=== PATIENT | female | born 1950 | race Caucasian/White ===

== ENCOUNTER 2020-03-20 19:32 | Emergency (ER) | payer MEDICARE, OTHER, SELFPAY ==
[2020-03-20 19:43] VITALS: BP 177/94; PULSE 77; RESP 18; TEMP 36.6; O2SAT 99
--- NOTE | 2020-03-20 19:47 | ED_ITS ---
HPI - Wound/Laceration General Chief Complaint: Wound/Laceration Stated Complaint: lt ram injury, left arm cut Time Seen by Provider: 03/20/20 19:47 History of Present Illness HPI narrative: Otherwise healthy 69-year-old woman stumbled over her cat today and fell against a metal chair. She has a small laceration to the and left ram and the left wrist. She was concerned that she needed a tetanus update so came into the emergency room for further evaluation. She has cleaned the wounds nicely at home and there was minimal bleeding at this time. She describes no recent fevers, cough, chills, chest pain, dyspnea no syncopal episodes and the fall that she experienced today was purely mechanical and secondary to her cat Related Data Allergies Allergy/AdvReac Type Severity Reaction Status Date / Time permethrin [PERMETHRIN] Allergy Severe Unverified 02/16/18 12:51 Review of Systems Review of Systems Narrative: Remainder of review of systems including constitutional, cardiovascular, respiratory, GI, , musculoskeletal, neurologic and psychiatric systems reviewed and are unremarkable except as noted in HPI. Patient History Social History Smoking Status: Current every day smoker Exam Initial Vital Signs Initial Vital Signs: Vital Signs Temperature 97.9 F 03/20/20 19:43 Pulse Rate 77 03/20/20 19:43 Respiratory Rate 18 03/20/20 19:43 Blood Pressure 177/94 H 03/20/20 19:43 Pulse Oximetry 99 03/20/20 19:43 Procedures Laceration Repair Laceration 1: Site: upper extremity Side (If applicable): right Size (cm): 3 Description: linear Depth: simple, single layer Skin layer closed with: dermabond Laceration 2: Site: lower extremity Description: linear Depth: simple, single layer Pre-repair: wound explored Skin layer closed with: dermabond (And Steri-Strips for added support) Course Orders Ordered: Discontinued Medications Bacitracin (Bacitracin) 1 applic TOP NOW ONE Stop: 03/20/20 19:58 Diphtheria/Tetanus/Acell Pertussis (Adacel) 0.5 ml IM .ONCE ONE Stop: 03/20/20 19:48 Last Admin: 03/20/20 19:54 Dose: 0.5 ml Documented by: Vital Signs Vital signs: Vital Signs - 8 hr 03/20/20 19:43 Temperature 97.9 F Pulse Rate 77 Respiratory Rate 18 Blood Pressure 177/94 H Pulse Oximetry 99 MDM - Wound/Laceration MDM Narrative Medical decision making narrative: Minor scratches to the right wrist and left ram. Both repaired with Dermabond and Steri-Strips. Tetanus status is updated. Fall was mechanical related to her cat no additional medical workup is warranted at this time. Safe for home discharge Discharge Plan Departure Patient Disposition: Home Clinical Impression: Abrasion Instructions: Tetanus, Diphtheria, Pertussis (Tdap) Vaccine, DI for Minor La ceration Activity Restrictions/Additional Instructions: Thank you for coming in today The wound on your wrist we used a bit of skin glue and then Steri-Strips. Please keep some Neosporin or other antibiotic ointment on the wound until it is clearly healing. For the wound on your ram we used similar technique to pull the edges together. This area has much higher potential to become infected so please pay attention. If your noticing any drainage, increased redness or increasing pain in that area you do need to be seen and re-evaluated. Both areas should heal nicely and completely. I am sorry you ended up tripping over your cat this evening but you have to thank her for giving us a chance to meet.
[2020-03-20] MEDS: TET,DIPH,PERTUSS(ACELL),VAC/PF 0.5 ML SYRINGE IM (19:54)
[2020-03-20] MEDS: BACITRACIN OINT 0.9 GM PCKT 1 APPLIC TOP (20:09)
== END 2020-03-20 20:08 | disposition home or self-care (01) ==
PROVIDERS: Emergency Provider Emergency Medicine
DX: S60.811A Abrasion of right wrist, initial encounter (principal); S80.812A Abrasion, left lower leg, initial encounter; W19.XXXA Unspecified fall, initial encounter; Z23 Encounter for immunization
CPT/HCPCS: 90471; 99283; 99284; 90715

== ENCOUNTER → 2021-11-07 14:16 | Outpatient (CLI) | payer MEDICARE, OTHER, SELFPAY ==
[2021-11-07 14:43] LABS: COVID19 -Nasal RAPID Negative (Negative)
== END ==
PROVIDERS: PCP Family Medicine; Visit Provider Nurse Practitioner Family
DX: Z20.822 Contact with and (suspected) exposure to COVID-19 (principal)
CPT/HCPCS: 87635

== ENCOUNTER → 2022-01-22 07:05 | Outpatient (CLI) | payer MEDICARE, OTHER, SELFPAY ==
[2022-01-22 07:45] LABS: Add Manual Diff / Slide Review NO; Basophils Absolute Auto 100 /uL (0-100); Basophils Percent Auto 0.9 % (0-2); Eosinophils Absolute Auto 1500 /uL (0-450); Eosinophils Percent Auto 15.3 % (2-4); Hematocrit 45.9 % (36-46); Hemoglobin 15.7 g/dL (12.0-16.0); Lymphocytes Absolute Auto 2300 /uL (1100-4500); Lymphocytes Percent Auto 23.2 % (25-40); Mean Corpuscular HGB Conc 34.3 % (30-36); Mean Corpuscular Volume 99.2 fL (80-100); Monocytes Absolute Auto 800 /uL (0-900); Monocytes Percent Auto 7.9 % (3-14); Neutrophils Absolute Auto 5100 /uL (1500-7000); Neutrophils Percent Auto 52.7 % (50-75); Platelet Count 354 X10^3/uL (150-400); Red Blood Cell Count 4.63 X10^6/uL (4.0-5.2); Red Cell Distribution Width 12.8 % (11.6-14.8); White Blood Cell Count 9.7 X10^3/uL (4.5-11.0)
[2022-01-22 08:23] LABS: BUN Creatinine Ratio 26.1 (6-22); Blood Urea Nitrogen 18 mg/dL (7-17); Calcium 9.8 mg/dL (8.4-10.2); Carbon Dioxide 27 mmol/L (22-32); Chloride 107 mmol/L (98-107); Creatine Kinase < 20 U/L (30-135); Estimated Glomerular Filt Rate > 60.0 mL/min (>60); Glucose 93 mg/dL (80-110); HEMOLYSIS < 15 (0-50); Potassium 4.4 mmol/L (3.4-5.1); Sodium 140 mmol/L (137-145)
[2022-01-22 08:35] LABS: Troponin I < 0.012 ng/mL (0.01-0.034)
== END ==
PROVIDERS: PCP Family Medicine; Referring Provider Family Medicine; Visit Provider Family Medicine
DX: F32.9 Major depressive disorder, single episode, unspecified (principal); G43.109 Migraine with aura, not intractable, without status migrainosus; H40.9 Unspecified glaucoma; L85.3 Xerosis cutis; M19.90 Unspecified osteoarthritis, unspecified site; R07.89 Other chest pain
CPT/HCPCS: 36415; 80048; 82550; 84484; 85025

== ENCOUNTER → 2022-05-07 08:45 | Outpatient (CLI) | payer MEDICARE, OTHER, SELFPAY ==
[2022-05-07 10:56] LABS: Cholesterol 201 mg/dL (140-199); HDL Cholesterol 53 mg/dL (40-60); LDL Cholesterol Calculated 121 mg/dL (<100); Triglycerides 136 mg/dL (35-150)
== END ==
PROVIDERS: PCP Family Medicine; Referring Provider Family Medicine; Visit Provider Family Medicine
DX: Z13.220 Encounter for screening for lipoid disorders (principal)
CPT/HCPCS: 36415; 80061

== ENCOUNTER 2022-08-05 18:14 | Emergency (ER) | payer MEDICARE, OTHER, SELFPAY ==
[2022-08-05 18:28] VITALS: BP 187/104; PULSE 90; RESP 18; TEMP 36.7; O2SAT 96; BMI 18.3
--- NOTE | 2022-08-05 19:20 | DI.RAD.S_ITS ---
PROCEDURE: XR CHEST 2V INDICATIONS: cough, vomiting TECHNIQUE: 2 views of the chest were acquired. COMPARISON: Outside Facility, RG, XR CXR 2V, 05/16/2018, 10:58. FINDINGS: Surgical changes and devices: None. Lungs and pleura: Lungs are clear. There is hyperinflation of the lungs with flattening of the hemidiaphragms compatible with COPD. No pleural effusions or pneumothorax. Mediastinum: Mediastinal contours are normal. Heart size is normal. Bones and chest wall: No suspicious bony abnormalities. Soft tissues appear unremarkable. IMPRESSION: 1. No acute cardiopulmonary disease. 2. Findings compatible with COPD. Dictated by: Ned Navarrete M.D. on 08/05/2022 at 20:32 Approved by: Ned Navarrete M.D. on 08/05/2022 at 20:32
[2022-08-05 20:14] LABS: Adenovirus Not Detected (Not Detect); B. parapertussis Not Detected (Not Detecte); Bordetella pertussis Not Detected (Not Detecte); Chlamydophila pneumoniae Not Detected (Not Detect); Coronavirus 229E Not Detected (Not Detect); Coronavirus HKU1 Not Detected (Not Detect); Coronavirus NL 63 Not Detected (Not Detect); Coronavirus OC43 Not Detected (Not Detect); Human Metapneumovirus Not Detected (Not Detect); Human Rhinovirus/Enterovirus Not Detected (Not Detect); Influenza A Not Detected (Not Detect); Influenza B Not Detected (Not Detect); Mycoplasma pneumoniae Not Detected (Not Detect); Parainfluenza Virus 1 Not Detected (Not Detect); Parainfluenza Virus 2 Not Detected (Not Detect); Parainfluenza Virus 3 Not Detected (Not Detect); Parainfluenza Virus 4 Not Detected (Not Detect); Respiratory Syncytial Virus Detected (Not Detect); SARS- CoV-2 Not Detected (Not Detecte)
[2022-08-05 23:21] VITALS: BP 160/94; PULSE 66; RESP 20; TEMP 36.5; O2SAT 98
--- NOTE | 2022-08-05 23:48 | ED_ITS ---
HPI - URI/Sore Throat General Chief Complaint: Upper Respiratory Symptoms Stated Complaint: Sick for 3 days, Coughing, Low appetite, Vomiting Time Seen by Provider: 08/05/22 23:48 Source: patient Mode of arrival: Ambulatory History of Present Illness HPI Narrative: 72-year-old female smoker presents with a friend and a chief complaint of runny nose, sore throat and cough since Wednesday or Wednesday. She is had no fever or chills and states that the cough is occasionally brought up sputum but might be slightly on the mend. She states a deep breath makes her cough more. She had a few episodes of vomiting earlier today but has had a generally poor appetite. She states she has some numbness and tingling around her lips and feels numbness in her toes and fingers when she walks. She denies any dysuria, frequency or urgency. Related Data Home Medications Medication Instructions Recorded Confirmed cholecalciferol (vitamin D3) PO 07/03/20 05/29/22 estradiol 0.01% (0.1 mg/gram) 1 g vaginal DAILY PRN 05/29/22 vaginal cream (Estrace) Previous Rx's Medication Instructions Recorded valacyclovir 500 mg tablet 500 mg PO DAILY #90 tabs 11/05/20 diazepam 5 mg tablet 2.5 mg PO BEDTIME PRN Insomnia, 06/19/22 anxiety #20 tabs Allergies Allergy/AdvReac Type Severity Reaction Status Date / Time permethrin [PERMETHRIN] Allergy Severe Rash Verified 08/05/22 18:28 Review of Systems Review of Systems Narrative: GENERAL: See HPI HEENT: See HPI RESPIRATORY: See HPI CARDIOVASCULAR: See HPI GASTROINTESTINAL: See HPI : Denies dysuria, frequency, incontinence, hematuria, urinary retention. MUSCULOSKELETAL: denies weakness, joint pain, or bony pain SKIN: Denies rash, skin lesions, or other NEUROLOGIC: Denies weakness, headache, numbness, change in speech, confusion, seizures, incoordination. PSYCHIATRIC: No concerning psychosocial issues. 12 point review of systems is negative except for those stated above Patient History Medical History Acute low back pain without sciatica Acute thoracic back pain Atypical chest pain Bilateral bunions Body posture problem Cervical somatic dysfunction Chicken pox Chronic pain of right thumb Chronic thumb pain, bilateral Cranial somatic dysfunction Depression Dry skin Foot joint stiffness, bilateral Foot pain (~2017) Fractures (~1967) Glaucoma Herpes Lumbar region somatic dysfunction Migraine headache with aura Migraines Neck stiffness Osteoarthritis Osteoporosis Pelvic somatic dysfunction Sacral region somatic dysfunction Screening for hyperlipidemia Segmental and somatic dysfunction of abdomen and other regions Thoracic region somatic dysfunction Tobacco abuse disorder Upper extremity somatic dysfunction Vaginal dryness, menopausal Surgical History Anesthesia History of cataract removal with insertion of prosthetic lens (~05/2020) History of colonoscopy History of dental surgery (~2018) Status post glaucoma surgery (~05/2020) Family History Son Cystic fibrosis Brother Stroke Grandmother History of heart disease Social History Smoking Status: Current every day smoker alcohol intake: current substance use type: marijuana Smoking Status: Current every day smoker alcohol intake frequency: 0-2 drinks per day Substance Use Type: marijuana Exam Narrative Exam Narrative: GENERAL: [72] year old patient appears stated age. Thin but no evidence of malnutrition or temporal wasting, no respiratory distress HEAD: Atraumatic. Normocephalic. EYES: Pupils equal round and reactive. Extraocular motions intact. No scleral icterus. No injection or drainage. ENT: Dry mucous membranes Nose without bleeding, purulent drainage. Throat without erythema, tonsillar hypertrophy or exudate. Airway patent. NECK: Trachea midline. Non tender CARDIOVASCULAR: Regular rate and rhythm without murmurs, gallops, or rubs. RESPIRATORY: Decreased lung sounds throughout with prolonged expiratory phase, no rales, rhonchi or wheezing noted. Deep breath does elicit a rather violent cough GASTROINTESTINAL: Abdomen soft, non-tender, nondistended. EXTREMITIES: No edema or joint tenderness. BACK: Nontender without deformity or crepitance. No flank tenderness. NEURO: AOx3. SKIN: Poor skin turgor No rash or erythema of visible areas Initial Vital Signs Initial Vital Signs: Vital Signs Temperature 98.1 F 08/05/22 18:28 Pulse Rate 90 08/05/22 18:28 Respiratory Rate 18 08/05/22 18:28 Blood Pressure 187/104 H 08/05/22 18:28 Pulse Oximetry 96 08/05/22 18:28 Oxygen Delivery Method 09/28/22 18:28 Course Orders Ordered: ED Orders 08/05/22 18:35 Respiratory Panel (Film Array) Stat 08/05/22 19:20 Chest [XR chest 2V] Stat 08/06/22 00:10 Basic Metabolic Panel Stat Complete Blood Count AUTO DIFF Stat Discontinued Medications Albuterol (Albuterol Hfa Prepack) 1 box MISC SEEINSTR ONE Stop: 08/06/22 00:03 Last Admin: 08/06/22 00:22 Dose: 1 box Documented By: DANN Sodium Chloride (Normal Saline 0.9%) 1,000 mls @ 1,000 mls/hr IV BOLUS ONE Stop: 08/06/22 01:01 Last Infusion: 08/06/22 01:06 Dose: 0 mls/hr Documented By: Admin: 08/06/22 00:18 Dose: 1,000 mls/hr Documented By: DANN Ondansetron HCl (Ondansetron 4 Mg/2 Ml Inj) 4 mg IV NOW ONE Stop: 08/06/22 00:03 Last Admin: 08/06/22 00:19 Dose: Not Given Documented By: DANN Vital Signs Vital signs: Vital Signs - 8 hr 08/05/22 18:28 08/05/22 23:21 08/06/22 00:34 Temperature 98.1 F 97.7 F Pulse Rate 90 66 Respiratory Rate 18 20 Blood Pressure 187/104 H 160/94 H Pulse Oximetry 96 98 96 Oxygen Delivery Method Room Air Room Air Room Air MDM - URI/Sore Throat Lab Data Result diagrams: 08/06/22 00:10 08/06/22 00:10 Labs: Lab Results 08/05/22 08/06/22 08/06/22 Range/Units 18:35 00:10 00:10 WBC 10.9 (4.5-11.0) X10^3/uL RBC 4.97 (4.0-5.2) X10^6/uL Hgb 16.8 H (12.0-16.0) g/dL Hct 48.6 H (36-46) % MCV 97.8 (80-100) fL MCH 33.7 (26-34) PG MCHC 34.5 (30-36) % RDW 12.7 (11.6-14.8) % Plt Count 351 (150-400) X10^3/uL Neut % (Auto) 58.8 (50-75) % Lymph % (Auto) 28.8 (25-40) % Grimes % (Auto) 8.3 (3-14) % Eos % (Auto) 2.4 (2-4) % Baso % (Auto) 1.7 (0-2) % Neut # (Auto) 6400 (5339-5760) /uL Lymph # (Auto) 3100 (2323-3817) /uL Grimes # (Auto) 900 (0-900) /uL Eos # (Auto) 300 (0-450) /uL Baso # (Auto) 200 H (0-100) /uL Sodium 137 (137-145) mmol/L Potassium 4.0 (3.4-5.1) mmol/L Chloride 100 (98-107) mmol/L Carbon Dioxide 27 (22-32) mmol/L BUN 11 (7-17) mg/dL Creatinine 0.61 (0.52-1.04) mg/dL Estimated GFR > 60 (>60) mL/min BUN/Creatinine Ratio 18.0 (6-22) Glucose 114 H (80-110) mg/dL Calcium 9.5 (8.4-10.2) mg/dL Chlamy pneumoniae PCR Not detected (Not Detect) Adenovirus (PCR) Not detected (Not Detect) B. pertussis DNA (PCR) Not detected (Not Detecte) B.parapertussis DNA PCR Not detected (Not Detecte) Coronavirus OC43 (PCR) Not detected (Not Detect) Coronavirus HKU1 (PCR) Not detected (Not Detect) Coronavirus 229E (PCR) Not detected (Not Detect) SARS-CoV-2 (PCR) Not detected (Not Detecte) Coronavirus NL63 (PCR) Not detected (Not Detect) Human Metapneumovir PCR Not detected (Not Detect) Influenza Type A (PCR) Not detected (Not Detect) Influenza Type B (PCR) Not detected (Not Detect) M. pneumoniae (PCR) Not detected (Not Detect) Parainfluenza 1 (PCR) Not detected (Not Detect) Parainfluenza 2 (PCR) Not detected (Not Detect) Parainfluenza 3 (PCR) Not detected (Not Detect) Parainfluenza 4 (PCR) Not detected (Not Detect) RSV (PCR) Detected H (Not Detect) Entero/Rhino (PCR) Not detected (Not Detect) Imaging Data Chest x-ray: Radiologist's Impression: [address] [address] XRay Report Signed Patient: Izzy Waterman MR#: [id number] : 1950 Acct:[id number] Age/Sex: 72 / F Date of Service: 08/05/22 Loc: ED Accession Number: [id number] ?? Procedure: XR chest 2V Ordering Provider: ePdro Max D.O. PROCEDURE:? XR CHEST 2V ? INDICATIONS:? cough, vomiting ? TECHNIQUE:? 2 views of the chest were acquired.? ? COMPARISON:? Outside Facility, RG, XR CXR 2V, 05/16/2018, 10:58. ? FINDINGS:? ? Surgical changes and devices:? None.? ? Lungs and pleura:? Lungs are clear. There is hyperinflation of the lungs with flattening of the hemidiaphragms compatible with COPD.? ? No pleural effusions or pneumothorax.? ? Mediastinum:? Mediastinal contours are normal.? Heart size is normal.? ? Bones and chest wall:? No suspicious bony abnormalities.? Soft tissues appear unremarkable.? ? IMPRESSION:? ? 1. No acute cardiopulmonary disease. ? 2. Findings compatible with COPD.? ? Dictated by: Ned Navarrete M.D. on 08/05/2022 at 20:32 ? ? Approved by: Ned Navarrete M.D. on 08/05/2022 at 20:32 ? Discharge Plan Departure Patient Disposition: Home Clinical Impression: Respiratory syncytial virus (RSV) Instructions: Respiratory Syncytial Virus Activity Restrictions/Additional Instructions: *You have been diagnosed with [RSV upper respiratory infection] *What to do: *Please use the inhaler with spacer as directed, also you have been given a few antinausea tablets *Please follow up with your primary care provider in 2-3 days, call for an appointment. Let them know you were seen in the Emergency Department and that we ask that you be seen in follow up. We will electronically transmit a record of today's note if your PCP is in our system *If you do not have a primary care provider please contact the [facility] Resource line at [phone]. They will ask some questions about your medical history and help get you set up with a doctor in the community. *Return to Emergency Department if you should have any new, worsening or concerning symptoms, such as [fever greater than 101 F, shaking chills, worsening pain, persistent vomiting or other bothersome symptoms] Prescriptions: No Action valacyclovir 500 mg tablet 500 mg PO DAILY Qty: 90 3RF diazepam 5 mg tablet 2.5 mg PO BEDTIME PRN (Reason: Insomnia, anxiety) Qty: 20 0RF cholecalciferol (vitamin D3) PO estradiol [Estrace] 0.01 % (0.1 mg/gram) cream 1 g VAG DAILY PRN Rx Instructions: for 14 days Referrals: Varun King DO [Primary Care Provider] -
[2022-08-06] MEDS: SODIUM CHLORIDE 0.9% 1,000 ML 1000 ML IV (00:18)
[2022-08-06] MEDS: ALBUTEROL HFA PREPACK 1 BOX MISC (00:22)
[2022-08-06 00:32] LABS: Add Manual Diff / Slide Review NO; Basophils Absolute Auto 200 /uL (0-100); Basophils Percent Auto 1.7 % (0-2); Eosinophils Absolute Auto 300 /uL (0-450); Eosinophils Percent Auto 2.4 % (2-4); Hematocrit 48.6 % (36-46); Hemoglobin 16.8 g/dL (12.0-16.0); Lymphocytes Absolute Auto 3100 /uL (1100-4500); Lymphocytes Percent Auto 28.8 % (25-40); Mean Corpuscular HGB Conc 34.5 % (30-36); Mean Corpuscular Hemoglobin 33.7 PG (26-34); Mean Corpuscular Volume 97.8 fL (80-100); Monocytes Absolute Auto 900 /uL (0-900); Monocytes Percent Auto 8.3 % (3-14); Neutrophils Absolute Auto 6400 /uL (1500-7000); Neutrophils Percent Auto 58.8 % (50-75); Platelet Count 351 X10^3/uL (150-400); Red Blood Cell Count 4.97 X10^6/uL (4.0-5.2); Red Cell Distribution Width 12.7 % (11.6-14.8); White Blood Cell Count 10.9 X10^3/uL (4.5-11.0)
[2022-08-06 00:34] VITALS: O2SAT 96
[2022-08-06 00:35] LABS: Blood Urea Nitrogen 11 mg/dL (7-17); Calcium 9.5 mg/dL (8.4-10.2); Carbon Dioxide 27 mmol/L (22-32); Chloride 100 mmol/L (98-107); Estimated Glomerular Filt Rate > 60 mL/min (>60); Glucose 114 mg/dL (80-110); HEMOLYSIS < 15 (0-50); Sodium 137 mmol/L (137-145)
[2022-08-06 01:43] VITALS: BP 150/88; PULSE 68; RESP 18; O2SAT 96
[2022-08-06] MEDS: ONDANSETRON 4 MG ODT PREPACK 1 BOTTLE MISC (01:43)
== END 2022-08-06 01:45 | disposition home or self-care (01) ==
PROVIDERS: Emergency Provider Emergency Medicine; PCP Family Medicine
DX: J06.9 Acute upper respiratory infection, unspecified (principal); B97.4 Respiratory syncytial virus as the cause of diseases classified elsewhere; Z20.822 Contact with and (suspected) exposure to COVID-19; R11.10 Vomiting, unspecified
CPT/HCPCS: 36415; 71046; 80048; 85025; 87633; 94640; 96360; 99284

== ENCOUNTER → 2024-01-27 09:07 | Outpatient (CLI) | payer MEDICARE, OTHER, SELFPAY ==
[2024-01-27 09:59] LABS: Add Manual Diff / Slide Review NO; Basophils Absolute Auto 100 /uL (0-100); Basophils Percent Auto 1.3 % (0-2); Eosinophils Absolute Auto 800 /uL (0-450); Eosinophils Percent Auto 10.3 % (2-4); Hematocrit 46.6 % (36-46); Lymphocytes Absolute Auto 2100 /uL (1100-4500); Lymphocytes Percent Auto 26.8 % (25-40); Mean Corpuscular HGB Conc 34.3 % (30-36); Mean Corpuscular Hemoglobin 34.1 PG (26-34); Mean Corpuscular Volume 99.2 fL (80-100); Monocytes Absolute Auto 700 /uL (0-900); Monocytes Percent Auto 8.4 % (3-14); Neutrophils Absolute Auto 4200 /uL (1500-7000); Neutrophils Percent Auto 53.2 % (50-75); Platelet Count 312 X10^3/uL (150-400); Red Blood Cell Count 4.69 X10^6/uL (4.0-5.2); Red Cell Distribution Width 13.1 % (11.6-14.8); White Blood Cell Count 7.9 X10^3/uL (4.5-11.0)
[2024-01-27 10:45] LABS: Alanine Aminotransferase 16 IU/L (<35); Albumin Globulin Ratio 1.5 (1.0-2.8); Alkaline Phosphatase 73 U/L (38-126); Aspartate Aminotransferase 19 IU/L (14-36); BUN Creatinine Ratio 27.5 (6-22); Bilirubin Total 0.5 mg/dL (0.2-1.3); Blood Urea Nitrogen 19 mg/dL (7-17); Calcium 9.6 mg/dL (8.4-10.2); Carbon Dioxide 26 mmol/L (22-32); Chloride 110 mmol/L (98-107); Cholesterol 188 mg/dL (140-199); Estimated Glomerular Filt Rate > 60 mL/min (>60); Globulin 2.7 g/dL (1.7-4.1); Glucose 73 mg/dL (80-110); HDL Cholesterol 41 mg/dL (40-60); HEMOLYSIS < 15 (0-50); LDL Cholesterol Calculated 121 mg/dL (<100); Potassium 4.3 mmol/L (3.4-5.1); Sodium 141 mmol/L (137-145); Total Protein 6.7 g/dL (6.3-8.2); Triglycerides 130 mg/dL (35-150)
== END ==
PROVIDERS: PCP Family Medicine; Referring Provider Family Medicine; Visit Provider Family Medicine
DX: E78.00 Pure hypercholesterolemia, unspecified (principal); Z72.0 Tobacco use; D58.2 Other hemoglobinopathies; R10.9 Unspecified abdominal pain
CPT/HCPCS: 36415; 80053; 80061; 85025

== ENCOUNTER → 2024-02-14 09:21 | Outpatient (CLI) | payer MEDICARE, OTHER, SELFPAY ==
--- NOTE | 2024-02-14 09:22 | DI.US.S_ITS ---
PROCEDURE: US ABDOMEN LIMITED INDICATIONS: LIVER CYSTS TECHNIQUE: Real-time scanning was performed of the abdominal and retroperitoneal organs, with image documentation. COMPARISON: None. FINDINGS: Liver: Liver is normal in size. A few anechoic cysts in the liver, the largest of which in the left hepatic lobe measures 0.9 x 0.7 x 0.6 cm with a thin linear septation. No sonographic evidence of a solid mass. Gallbladder: No stones or sludge. Normal wall thickness. No pericholecystic fluid. Biliary ducts: Intrahepatic bile ducts are non-dilated. Extrahepatic bile duct caliber measures 3.6 mm. Normal is 6-7 mm or less in diameter, or 10 mm or less post-cholecystectomy. Pancreas: Visualized portions of the pancreas are sonographically normal. IMPRESSION: A few anechoic cysts in the liver, the largest of which in the left hepatic lobe measures 0.9 x 0.7 x 0.6 cm with a thin linear septation. Dictated by: Fely Lewis M.D. on 02/14/2024 at 19:17 Approved by: Fely Lewis M.D. on 02/14/2024 at 19:19
== END ==
LOC: US 09:21
PROVIDERS: PCP Family Medicine; Referring Provider Family Medicine; Visit Provider Family Medicine
DX: K76.89 Other specified diseases of liver (principal); Z87.898 Personal history of other specified conditions
CPT/HCPCS: 76705

== ENCOUNTER → 2024-04-04 12:18 | Outpatient (CLI) | payer MEDICARE, OTHER, SELFPAY ==
--- NOTE | 2024-04-04 12:21 | DI.RAD.S_ITS ---
PROCEDURE: XR THORACIC SPINE 2V INDICATIONS: LOW BACK PAIN TECHNIQUE: 2 views of the thoracic spine were acquired. COMPARISON: Merged With [facility], CR, XR CHEST 2V, 08/05/2022, 19:21. FINDINGS: Bones: No fractures or dislocations. No suspicious bony lesions. 12 pairs of ribs are noted, and appear intact. Lungs are clear. No pleural effusion. No pneumothorax. Soft tissues: No paravertebral stripe thickening. IMPRESSION: No acute osseous abnormality identified. Lungs are clear. Dictated by: Adi Donaldson M.D. on 04/04/2024 at 15:20 Approved by: Adi Donaldson M.D. on 04/04/2024 at 15:21
== END ==
PROVIDERS: PCP Family Medicine; Referring Provider Chiropractor; Visit Provider Chiropractor
DX: M54.50 Low back pain, unspecified (principal)
CPT/HCPCS: 72070

== ENCOUNTER → 2024-04-10 08:39 | Outpatient (CLI) | payer MEDICARE, OTHER, SELFPAY ==
--- NOTE | 2024-04-10 | DI.RAD.S_ITS ---
PROCEDURE: XR LUMBAR SPINE MIN 4V INDICATIONS: LOW BACK PAIN TECHNIQUE: 5 views of the lumbar spine were acquired, including bilateral oblique views. COMPARISON: None. FINDINGS: Bones: 5 nonrib-bearing vertebrae are present. There is minimal grade 1 anterolisthesis of L4 on L5 and L5 on S1. No acute vertebral body compression fractures. Multilevel degenerative endplate changes, disc space loss, and endplate osteophyte formation with moderate mid and lower lumbar facet arthropathy. Findings are most severe at L3-4 and L5-1. The No suspicious bony lesions. Soft tissues: Overlying bowel gas pattern is normal. No suspicious soft tissue calcifications. Dense vascular calcifications are present. Oblique images: No definite pars defects. IMPRESSION: Lumbar spine without acute osseous abnormalities. Moderate-severe multilevel lumbar spondylosis. Dictated by: Brenden Hudson M.D. on 04/10/2024 at 10:47 Approved by: Brenden Hudson M.D. on 04/10/2024 at 10:49
== END ==
PROVIDERS: PCP Family Medicine; Referring Provider Chiropractor; Visit Provider Chiropractor
DX: M47.816 Spondylosis without myelopathy or radiculopathy, lumbar region (principal); M47.817 Spondylosis without myelopathy or radiculopathy, lumbosacral region; M54.50 Low back pain, unspecified
CPT/HCPCS: 72110

== ENCOUNTER → 2025-01-31 16:46 | Outpatient (CLI) | payer MEDICARE, OTHER, SELFPAY ==
[2025-01-31 17:23] LABS: Add Manual Diff / Slide Review NO; Basophils Absolute Auto 100 /uL (0-100); Basophils Percent Auto 0.5 % (0-2); Eosinophils Absolute Auto 1100 /uL (0-450); Eosinophils Percent Auto 9.5 % (2-4); Hemoglobin 14.5 g/dL (12.0-16.0); Lymphocytes Absolute Auto 3200 /uL (1100-4500); Lymphocytes Percent Auto 27.4 % (25-40); Mean Corpuscular HGB Conc 33.8 % (30-36); Mean Corpuscular Hemoglobin 32.5 PG (26-34); Mean Corpuscular Volume 96.1 fL (80-100); Monocytes Absolute Auto 700 /uL (0-900); Monocytes Percent Auto 6.2 % (3-14); Neutrophils Absolute Auto 6600 /uL (1500-7000); Neutrophils Percent Auto 56.4 % (50-75); Platelet Count 316 X10^3/uL (150-400); Red Blood Cell Count 4.47 X10^6/uL (4.0-5.2); Red Cell Distribution Width 13.4 % (11.6-14.8); White Blood Cell Count 11.7 X10^3/uL (4.5-11.0)
[2025-01-31 17:35] LABS: Alanine Aminotransferase 16 IU/L (<35); Albumin 4.3 g/dL (3.5-5.0); Albumin Globulin Ratio 1.6 (1.0-2.8); Alkaline Phosphatase 93 U/L (38-126); Aspartate Aminotransferase 27 IU/L (14-36); Bilirubin Total 0.3 mg/dL (0.2-1.3); Blood Urea Nitrogen 13 mg/dL (7-17); Calcium 9.6 mg/dL (8.4-10.2); Carbon Dioxide 23 mmol/L (22-32); Chloride 106 mmol/L (98-107); Estimated Glomerular Filt Rate > 60 mL/min (>60); Globulin 2.7 g/dL (1.7-4.1); Glucose 87 mg/dL (80-110); HEMOLYSIS 26 (0-50); Potassium 4.2 mmol/L (3.4-5.1); Sodium 139 mmol/L (137-145)
== END ==
LOC: LAB 16:48
PROVIDERS: PCP Family Medicine; Referring Provider Physician Assistant; Visit Provider Physician Assistant
DX: R55 Syncope and collapse (principal)
CPT/HCPCS: 36415; 80053; 84443; 85025

== ENCOUNTER → 2025-02-07 06:58 | Outpatient (CLI) | payer MEDICARE, OTHER, SELFPAY ==
--- NOTE | 2025-02-07 06:59 | DI.ECHO.S_ITS ---
[facility] : : [address] : : [place] : : [id number] : : Phone: [phone] Echocardiogram Report + + :Name: MAREK GRAYSON Study Date: 02/07/2025 Height: 63 in : :[facility] ReadingLocation: Weight: 103 lb : : Gender: Female BSA: 1.5 m2 : :: 1950 Age: 74 yrs BP: 129/92 mmHg: :Reason For Study: SYNCOPE : :Ordering Physician: MONA, : :BLANCO Performed By: John Tejeda : :Referring: EVERT DUNN : + + Interpretation Summary The patient was in normal sinus rhythm during the exam. The patient had frequent PACs during the exam. The patient had frequent PVCs during the exam. The left ventricle is normal in size. The left ventricular ejection fraction is normal. The ejection fraction is estimated to be 55-60%. The right ventricle is normal in size and function. There is mild to moderate tricuspid regurgitation. The right ventricular systolic pressure is estimated to be at least 31 mmHg based on an estimated right atrial pressure of 3 mm Hg. There is mild luminal irregularity and echogenicity in the abdominal aorta, suggestive of aortic atherosclerotic disease. Procedure: A two-dimensional transthoracic echocardiogram with color flow and Doppler was performed. The study quality was technically good. There is no prior echocardiogram noted for this patient. The patient was in normal sinus rhythm during the exam. The patient had frequent PACs during the exam. The patient had frequent PVCs during the exam. Left Ventricle: The left ventricle is normal in size. There is normal left ventricular wall thickness. There is no thrombus. The ejection fraction is estimated to be 55-60%. The left ventricular ejection fraction is normal. There are no focal wall motion abnormalities. LV dyssynchrony during PACs and PVCs. MV E/A: 0.73 Med Peak E' Dell: 3.6 cm/sec E/E' med: 16.4. Right Ventricle: The right ventricle is normal in size and function. Atria: The left atrial size is normal. Right atrial size is normal. There is no Doppler evidence for an interatrial shunt. The atrial septum is aneurysmal. Mitral Valve: There is mild mitral annular calcification. There is trace mitral regurgitation. Aortic Valve: The aortic valve is trileaflet. Calcified NCC. There is discrete nodular thickening of the non- coronary cusp. There is no aortic valve stenosis. No aortic regurgitation is present. Tricuspid Valve: The tricuspid valve is normal. There is mild to moderate tricuspid regurgitation. The right ventricular systolic pressure is estimated to be at least 31 mmHg based on an estimated right atrial pressure of 3 mm Hg. Pulmonic Valve: The pulmonic valve leaflets are thin and pliable; valve motion is normal. There is no pulmonic valvular regurgitation. Great Vessels: The aortic root is normal size. The dimensions of the ascending aorta are normal. There is mild luminal irregularity and echogenicity in the abdominal aorta, suggestive of aortic atherosclerotic disease. The pulmonary artery is normal size. The IVC is of normal diameter and collapses greater than 50% with a sniff. This suggests a low right atrial pressure of 3 mm Hg. Pericardium/ Pleura There is no pericardial effusion. There is no pleural effusion. MMode/2D Measurements & Calculations LVIDd: 4.4 cm LVOT diam: 2.1 cm LVIDs: 3.2 cm Ao root diam: 2.9 cm FS: 28.1 % asc Aorta Diam: 3.0 cm EPSS: 0.71 cm IVSd: 0.80 cm LVPWd: 0.76 cm LV urena. diameter/BSA (cm/m^2): 3.0 LV sys. diameter/BSA (cm/m^2): 2.2 LA A2 area: 17.0 cm2 RA long axis: 4.5 cm LA A4 area: 10.0 cm2 RA area: 12.5 cm2 LA length (vol): 4.3 cm RA vol: 29.8 ml LA vol: 33.6 ml RA : 20.4 ml/m2 LA vol index: 23.0 ml/m2 IVC diam: 1.9 cm RVD1 (basal): 3.1 cm RVD2 (mid): 2.6 cm TAPSE: 1.9 cm Doppler Measurements & Calculations Ao V2 max: 134.4 cm/sec LVOT Max Dell: 89.0 cm/sec Ao V2 mean: 99.5 cm/sec LV V1 max P.2 mmHg Ao max P.2 mmHg LV V1 VTI: 16.1 cm Ao mean P.2 mmHg MANDI(I,D): 1.9 cm2 Ao V2 VTI: 28.0 cm MANDI(V,D): 2.2 cm2 sev ratio: 0.58 MANDI indexed to BSA (cm^2/m^2): 1.3 MV E max dell: 58.7 cm/sec TR max dell: 264.1 cm/sec MV A max dell: 80.2 cm/sec TR max P.9 mmHg MV E/A: 0.73 PA V2 max: 67.0 cm/sec Med Peak E' Dell: 3.6 cm/sec PA V2 mean: 45.7 cm/sec E/E' med: 16.4 PA mean P.94 mmHg Lat Peak E' Dell: 4.1 cm/sec PA pr(Accel): 19.1 mmHg E/E' lat: 14.5 E/e' average: 15.4 MV dec time: 0.23 sec SV(LVOT): 54.5 ml Reading Physician:09:58 AM
== END ==
PROVIDERS: PCP Family Medicine; Referring Provider Physician Assistant; Visit Provider Physician Assistant
DX: R55 Syncope and collapse (principal); I08.1 Rheumatic disorders of both mitral and tricuspid valves
CPT/HCPCS: 93306

== ENCOUNTER → 2025-06-14 10:07 | Outpatient (CLI) | payer MEDICARE, OTHER, SELFPAY ==
--- NOTE | 2025-06-14 10:09 | DI.RAD.S_ITS ---
PROCEDURE: XR HIP W PEL IF DONE BILAT 2V INDICATIONS: Bilateral hip pain R > L suspect OA TECHNIQUE: AP pelvis with lateral view(s) of the bilateral hip(s). COMPARISON: None. FINDINGS: Bones: There are no osseous abnormalities. SI and hip joints: Normal in width and alignment without arthritic change. Moderate L4-5 and L5-S1 degenerative disc and facet disease Soft tissues: No soft tissue swelling, calcification or mass. IMPRESSION: Normal pelvis Moderate L4-5 and L5-S1 degenerative disc and facet disease Dictated by: Raj Mckinnon M.D. on 06/15/2025 at 13:18 Approved by: Raj Mckinnon M.D. on 06/15/2025 at 13:19
== END ==
PROVIDERS: PCP Family Medicine; Referring Provider Physician Assistant; Visit Provider Physician Assistant
DX: M51.369 Other intervertebral disc degeneration, lumbar region without mention of lumbar back pain or lower extremity pain (principal); M51.379 Other intervertebral disc degeneration, lumbosacral region without mention of lumbar back pain or lower extremity pain; M47.816 Spondylosis without myelopathy or radiculopathy, lumbar region; M47.817 Spondylosis without myelopathy or radiculopathy, lumbosacral region; M25.551 Pain in right hip; M25.552 Pain in left hip; M79.604 Pain in right leg; M79.605 Pain in left leg; M79.606 Pain in leg, unspecified; I99.8 Other disorder of circulatory system; Z72.0 Tobacco use
CPT/HCPCS: 73521